=== PATIENT | male | born 1980 | race Caucasian/White ===

== ENCOUNTER 2016-11-13 18:00 | Emergency (ER) | payer OTHER ==
[~2016-11-13] VITALS: Ht 177.8 cm; Wt 63.5 kg
[~2016-11-13 18:00] MED LIST: CYCLOBENZAPRINE10 MG PO; HYDROCODONE BIT1 T11 PO; IBU800 MG PO; Motrin,Rufen800 MG PO; NORCO 10-325 T1 EACH PO; PERCOCET 325 MG1 TA2 PO
[2016-11-13] MEDS ORDERED: CYCLOBENZAPRINE10 MG PO (20:36)
[2016-11-13] MEDS ORDERED: PREDNISONE10 MG PO (20:36)
== END 2016-11-13 22:03 | disposition home or self-care (01) ==
LOC: ED 18:00
DX: M54.30 Sciatica, unspecified side (principal); F17.200 Nicotine dependence, unspecified, uncomplicated

== ENCOUNTER 2017-08-09 09:07 | Emergency (ER) | payer OTHER ==
[~2017-08-09] VITALS: Wt 68.0 kg
[~2017-08-09 09:07] MED LIST changes: +PREDNISONE10 MG PO
[2017-08-09] MEDS ORDERED: CYCLOBENZAPRINE10 MG PO (09:25)
[2017-08-09] MEDS ORDERED: MEDROL DOSEPAK4 MG PO (09:25)
== END 2017-08-09 09:26 | disposition home or self-care (01) ==
LOC: ED 09:07
DX: M54.32 Sciatica, left side (principal)

== ENCOUNTER 2019-12-22 10:14 | Emergency (ER) | payer OTHER ==
[~2019-12-22] VITALS: Ht 177.8 cm; Wt 63.5 kg
[~2019-12-22 10:14] MED LIST changes: +MEDROL DOSEPAK4 MG PO
[2019-12-22] MEDS ORDERED: IBU800 MG PO (11:51)
[2019-12-22] MEDS ORDERED: PREDNISONE20 M1 PO (11:51)
[2019-12-22] MEDS ORDERED: CYCLOBENZAPRINE10 MG PO (11:51)
== END 2019-12-22 12:01 | disposition home or self-care (01) ==
LOC: ED 10:14
DX: M54.5 Low back pain (principal)